=== PATIENT | female | born 1955 | race Caucasian/White ===

== ENCOUNTER 2019-12-02 15:39 | Emergency (ER) | payer SELFPAY ==
[2019-12-02] MEDS ORDERED: Albuterol/Ipratropium 3.0-0.5 MG/3 ML Neb Soln NEB ONE (16:08)
[2019-12-02] MEDS ORDERED: Sodium Chloride 0.9% 2.5 ML Syringe FLUSH PRN (16:09)
[2019-12-02] MEDS ORDERED: Sodium Chloride 0.9% 10 ML Syringe FLUSH PRN (16:09)
[2019-12-02 16:58] LABS: CARBON DIOXIDE,CO2 24.1 mmol/L (21.0-32.0); POTASSIUM,K 4.8 mmol/L (3.5-5.1)
[2019-12-02] MEDS ORDERED: methylPREDNISolone Sodium Succinate 125 MG/2 ML SDV IVPUSH ONE (16:59)
--- NOTE | 2019-12-02 17:10 | CR ---
Chest: Portable view of the chest was obtained. Comparison: No prior chest imaging. Heart size and mediastinum are within normal limits for portable technique. Lungs show no acute parenchymal change. Bony structures are grossly intact. Calcification is noted off the lateral humeral head compatible with previous calcific tendinitis. Impression: 1. Findings as noted above. 2. Nothing acute is seen on portable chest x-ray. Diagnostic code #2 Study was dictated in [place] Standard Time
[2019-12-02] MEDS ORDERED: Sodium Chloride 0.9% 1,000 ML IV ONE (17:16)
--- NOTE | 2019-12-02 17:41 | EDM.PDOC ---
ED HPI GENERAL MEDICAL PROBLEM - General Chief Complaint: Respiratory Problem Stated Complaint: FLU Time Seen by Provider: 12/02/19 15:49 Source of Information: Reports: Patient History Limitations: Reports: No Limitations - History of Present Illness INITIAL COMMENTS - FREE TEXT/NARRATIVE: HISTORY AND PHYSICAL: History of present illness: Patient is a 63-year-old female who presents to the emergency room with complaints of shortness of breath, cough, body aches and subjective fever. She states that symptoms have been ongoing for approximately a week but have been worse over the past 1 to 2 days. Patient is a daily long-term smoker. She denies any previous history of lung or heart problems. Patient denies any headache, change in vision, syncope or near syncope. Denies any chest pain, back pain, or neck pain/stiffness. Denies any GI or symptoms. Patient has been eating and drinking appropriately. Review of systems: As per history of present illness and below otherwise all systems reviewed and negative. Past medical history: As per history of present illness and as reviewed below otherwise noncontributory. Surgical history: As per history of present illness and as reviewed below otherwise noncontributory. Social history: See social history for further information Family history: As per history of present illness and as reviewed below otherwise noncontributory. Physical exam: General: Well-developed and well-nourished 63-year-old female. Alert and oriented. Nontoxic-appearing and in no acute distress. HEENT: Atraumatic, normocephalic, pupils equal and reactive bilaterally, negative for conjunctival pallor or scleral icterus, mucous membranes moist, TMs normal bilaterally, throat clear, neck supple, nontender, trachea midline. No drooling or trismus noted. No meningeal signs. No hot potato voice noted. Lungs: Fine expiratory wheezing bilaterally/slightly diminished otherwise clear to auscultation, chest nontender. Dry nonproductive cough is noted Heart: S1S2, regular rate and rhythm without overt murmur Abdomen: Soft, obese, nontender. Negative for masses or costovertebral tenderness. Pelvis: Stable nontender. Skin: Intact, warm, dry. No lesions or rashes noted. Extremities: Atraumatic, moves all extremities per self without difficulty or deficits, negative for cords or calf pain. Neurovascular unremarkable. Neuro: Awake, alert, oriented. Cranial nerves II through XII unremarkable. Cerebellum unremarkable. Motor and sensory unremarkable throughout. Exam nonfocal. Notes: Patient's oxygen saturation can range from 86 to 94% on room air. Her diagnostics are unremarkable with the exception of her renal function. Looking at previous lab work it appears that she has been elevated but not to the extent she is today. I did have nursing staff ambulate with her and monitor her oxygen which dips to the mid 80s. She states she did feel somewhat improved after the IV Solu-Medrol and DuoNeb. Initially she was agreeable to staying for observation for further evaluation and management of these findings. The hospitalist came and spoke with the patient and she states she would like to elope. Patient reports she doesn't have insurance and would like to leave against medical advice. Risks vs benefits were reviewed which include . I strongly encouraged her to follow-up with primary care or return to the emergency room if symptoms should persist, worsen or new symptoms develop. Diagnostics: CBC, CMP, UA, influenza, CXR Therapeutics: Solu-Medrol, IV fluids Impression: Renal insufficiency Hypoxia Against Medical Advice Plan: Patient was to be admitted; states she doesn't have insurance and would like to leave against medical advice. Definitive disposition and diagnosis as appropriate pending reevaluation and review of above. bodyaches Pain Score (Numeric/FACES): 8 - Related Data Allergies Allergy/AdvReac Type Severity Reaction Status Date / Time Influenza Virus Vaccines Allergy Other Verified 12/02/19 15:57 Home Meds: Home Meds Atenolol [Tenormin] 50 mg PO DAILY 12/02/19 [History] Ibuprofen 800 mg PO TID 12/02/19 [History] Lisinopril/Hydrochlorothiazide [Lisinopril-Hctz 20-12.5 mg Tab] 1 tab PO DAILY 12/02/19 [History] metFORMIN [Glucophage] 800 mg PO TID 12/02/19 [History] traMADol [Ultram] 50 mg PO BID 12/02/19 [History] Past Medical History HEENT History: Reports: None Cardiovascular History: Reports: Hypertension Respiratory History: Reports: None Gastrointestinal History: Reports: None Genitourinary History: Reports: None 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 History: Reports: 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 Musculoskeletal History: Reports: None Neurological History: Reports: None Psychiatric History: Reports: None Endocrine/Metabolic History: Reports: Diabetes, Type II Hematologic History: Reports: None Immunologic History: Reports: None Oncologic (Cancer) History: Reports: None Dermatologic History: Reports: None - Infectious Disease History Infectious Disease History: Reports: Chicken Pox - Past Surgical History Head Surgeries/Procedures: Reports: None HEENT Surgical History: Reports: None Cardiovascular Surgical History: Reports: None Respiratory Surgical History: Reports: None GI Surgical History: Reports: Appendectomy Female Surgical History: Reports: Breast Biopsy, Section Endocrine Surgical History: Reports: None Neurological Surgical History: Reports: None Musculoskeletal Surgical History: Reports: None Oncologic Surgical History: Reports: None Dermatological Surgical History: Reports: None Social & Family History - Family History Family Medical History: Noncontributory - Tobacco Use Smoking Status *Q: Current Every Day Smoker Years of Tobacco use: 52 Packs/Tins Daily: 0.5 - Caffeine Use Caffeine Use: Reports: None - Recreational Drug Use Recreational Drug Use: No ED ROS GENERAL - Review of Systems Review Of Systems: Comprehensive ROS is negative, except as noted in HPI. ED EXAM, GENERAL - Physical Exam Exam: See Below (See dictation) Course - Vital Signs Last Recorded V/S: Last Vital Signs Temp 96.1 F 12/02/19 15:58 Pulse 65 12/02/19 17:28 Resp 18 12/02/19 17:28 BP 104/70 12/02/19 17:28 Pulse Ox 93 L 12/02/19 17:28 - Orders/Labs/Meds Orders: Active Orders 24 hr Category Date Time Status Admission Status [Patient Status] [ADT] Stat ADT 12/02/19 17:38 Active EKG 12 Lead [EKG Documentation Completion] [RC] STAT Care 12/02/19 16:09 Active RT Aerosol Therapy [RC] ASDIRECTED Care 12/02/19 16:08 Active Sodium Chloride 0.9% [Normal Saline] 1,000 ml Med 12/02/19 17:16 Active IV STAT Sodium Chloride 0.9% [Saline Flush] Med 12/02/19 16:09 Active 10 ml FLUSH ASDIRECTED PRN Sodium Chloride 0.9% [Saline Flush] Med 12/02/19 16:09 Active 2.5 ml FLUSH ASDIRECTED PRN Saline Lock Insert [OM.PC] Stat Oth 12/02/19 16:09 Ordered Medication Orders Sodium Chloride (Normal Saline) 1,000 mls @ 999 mls/hr IV STAT ONE Stop: 12/02/19 18:16 Last Admin: 12/02/19 17:23 Dose: 999 mls/hr Sodium Chloride (Saline Flush) 10 ml FLUSH ASDIRECTED PRN PRN Reason: Keep Vein Open Last Admin: 12/02/19 16:37 Dose: 10 ml Sodium Chloride (Saline Flush) 2.5 ml FLUSH ASDIRECTED PRN PRN Reason: Keep Vein Open Last Admin: 12/02/19 16:37 Dose: 2.5 ml Labs: Laboratory Tests 12/02/19 12/02/19 Range/Units 16:05 16:05 WBC 6.85 (4.0-11.0) K/uL RBC 4.96 (4.30-5.90) M/uL Hgb 15.7 (12.0-16.0) g/dL Hct 46.6 H (36.0-46.0) % MCV 94.0 (80.0-98.0) fL MCH 31.7 (27.0-32.0) pg MCHC 33.7 (31.0-37.0) g/dL RDW Std Deviation 46.3 (28.0-62.0) fl RDW Coeff of [place] 14 (11.0-15.0) % Plt Count 213 (150-400) K/uL MPV 11.50 (7.40-12.00) fL Add Manual Diff YES Neutrophils % (Manual) 41 L (48.0-80.0) % Lymphocytes % (Manual) 50 H (16.0-40.0) % Monocytes % (Manual) 8 (0.0-15.0) % Eosinophils % (Manual) 1 (0.0-7.0) % Nucleated RBC % 0.0 /100WBC Absolute Seg Neuts 2.8 (1.4-5.7) Lymphocytes # (Manual) 3.4 H (0.6-2.4) Monocytes # (Manual) 0.5 (0.0-0.8) Eosinophils # (Manual) 0.1 (0.0-0.7) Nucleated RBCs # 0 K/uL Sodium 138 (136-145) mmol/L Potassium 4.8 (3.5-5.1) mmol/L Chloride 102 (98-107) mmol/L Carbon Dioxide 24.1 (21.0-32.0) mmol/L BUN 53 H (7.0-18.0) mg/dL Creatinine 1.8 H (0.6-1.0) mg/dL Est Cr Clr Drug Dosing 28.34 mL/min Estimated GFR (MDRD) 28.6 ml/min Glucose 104 (74-106) mg/dL Calcium 9.7 (8.5-10.1) mg/dL Total Bilirubin 0.3 (0.2-1.0) mg/dL AST 48 H (15-37) IU/L ALT 32 (14-63) IU/L Alkaline Phosphatase 103 (46-116) U/L Total Protein 8.1 (6.4-8.2) g/dL Albumin 3.8 (3.4-5.0) g/dL Globulin 4.3 H (2.6-4.0) g/dL Albumin/Globulin Ratio 0.9 (0.9-1.6) Meds: Medications Generic Name Dose Route Start Last Admin Trade Name Freq PRN Reason Stop Dose Admin Sodium Chloride 1,000 mls @ 999 mls/hr 12/02/19 17:16 12/02/19 17:23 Normal Saline IV 12/02/19 18:16 999 mls/hr STAT ONE Administration Sodium Chloride 10 ml 12/02/19 16:09 12/02/19 16:37 Saline Flush FLUSH 10 ml ASDIRECTED PRN Administration Keep Vein Open Sodium Chloride 2.5 ml 12/02/19 16:09 12/02/19 16:37 Saline Flush FLUSH 2.5 ml ASDIRECTED PRN Administration Keep Vein Open Discontinued Medications Generic Name Dose Route Start Last Admin Trade Name Freq PRN Reason Stop Dose Admin Albuterol/Ipratropium 3 ml 12/02/19 16:08 12/02/19 16:18 Duoneb 3.0-0.5 Mg/3 Ml NEB 12/02/19 16:09 3 ml ONETIME ONE Administration Methylprednisolone Sodium Succinate 125 mg 12/02/19 16:59 12/02/19 17:23 Solu-Medrol IVPUSH 12/02/19 17:00 125 mg ONETIME ONE Administration Departure - Departure Time of Disposition: 18:22 Disposition: Home, Self-Care 01 Clinical Impression: Renal insufficiency, Hypoxia, Left against medical advice - Discharge Information Referrals: Cindy Atwood DO [Primary Care Provider] - Forms: ED Department Discharge Sepsis Event Note - Evaluation Sepsis Screening Result: No Definite Risk - Focused Exam Vital Signs: Vital Signs Temp Pulse Resp BP Pulse Ox 12/02/19 17:28 65 18 104/70 93 L 12/02/19 15:58 96.1 F 75 18 120/75 86 L Date Exam was Performed: 12/02/19 Time Exam was Performed: 18:12 - My Orders Last 24 Hours: My Active Orders 12/02/19 16:08 RT Aerosol Therapy [RC] ASDIRECTED 12/02/19 16:09 EKG 12 Lead [EKG Documentation Completion] [RC] STAT Sodium Chloride 0.9% [Saline Flush] 10 ml FLUSH ASDIRECTED PRN Sodium Chloride 0.9% [Saline Flush] 2.5 ml FLUSH ASDIRECTED PRN Saline Lock Insert [OM.PC] Stat 12/02/19 17:16 Sodium Chloride 0.9% [Normal Saline] 1,000 ml IV STAT 12/02/19 17:38 Admission Status [Patient Status] [ADT] Stat - Assessment/Plan Last 24 Hours: My Active Orders 12/02/19 16:08 RT Aerosol Therapy [RC] ASDIRECTED 12/02/19 16:09 EKG 12 Lead [EKG Documentation Completion] [RC] STAT Sodium Chloride 0.9% [Saline Flush] 10 ml FLUSH ASDIRECTED PRN Sodium Chloride 0.9% [Saline Flush] 2.5 ml FLUSH ASDIRECTED PRN Saline Lock Insert [OM.PC] Stat 12/02/19 17:16 Sodium Chloride 0.9% [Normal Saline] 1,000 ml IV STAT 12/02/19 17:38 Admission Status [Patient Status] [ADT] Stat
== END 2019-12-02 18:52 | disposition left against medical advice (07) ==
LOC: MW.ED 15:39
DX: R09.02 Hypoxemia (principal); N28.9 Disorder of kidney and ureter, unspecified; F17.210 Nicotine dependence, cigarettes, uncomplicated; E11.9 Type 2 diabetes mellitus without complications; I10 Essential (primary) hypertension; Z79.84 Long term (current) use of oral hypoglycemic drugs; Z79.899 Other long term (current) drug therapy; Z88.7 Allergy status to serum and vaccine
CPT/HCPCS: 71045; 80053; 85025; 87804; 93005; 94640; 99283; J2930; J7030; J7620-GY

== ENCOUNTER 2020-08-13 22:22 | Emergency (ER) | payer SELFPAY ==
[2020-08-13] MEDS ORDERED: Sodium Chloride 0.9% 2.5 ML Syringe FLUSH PRN (22:28)
[2020-08-13] MEDS ORDERED: Sodium Chloride 0.9% 1,000 ML IV ONE (22:28)
[2020-08-13] MEDS ORDERED: Sodium Chloride 0.9% 10 ML Syringe FLUSH PRN (22:28)
[2020-08-13] MEDS ORDERED: Albuterol/Ipratropium 3.0-0.5 MG/3 ML Neb Soln NEB ONE (22:31)
[2020-08-13] MEDS ORDERED: cefTRIAXone 2 GM in Premix Bag 1 BAG IV ONE (22:31)
[2020-08-13] MEDS ORDERED: methylPREDNISolone Sodium Succinate 125 MG/2 ML SDV IVPUSH ONE (22:31)
--- NOTE | 2020-08-13 22:39 | EDM.PDOC ---
ED [facility] GENERAL MEDICAL PROBLEM - General Chief Complaint: Respiratory Problem Stated Complaint: difficulty breathing/cough Time Seen by Provider: 08/13/20 22:23 - History of Present Illness INITIAL COMMENTS - FREE TEXT/NARRATIVE: HISTORY AND PHYSICAL: History of present illness: This 64-year-old female with a past medical history of renal insufficiency, hypoxemia, obesity, hypertension, and diabetes mellitus presents emergency department complaining of severe shortness of breath that gradually worsened over the last several days. She was recently seen in clinic and had a negative COVID-19 test however today she presents hypoxic, oxygen saturation in the high 60s, tachypneic, accessory muscle use, pursed lip breathing, prolonged expiratory phase, and having difficulty giving history due to her cyanosis. She reports that she has had a cough, shortness of breath and gradual worsening and has not been able to lie flat. She denies history of COPD. No fevers. No productive sputum. No other associated signs or symptoms. No other modifying, aggravating or alleviating factors. She does currently smoke tobacco. Denies use of drugs or alcohol. Review of systems: A 10-point review of systems, other than pertinent positives and negatives as stated per HPI, is otherwise negative. Past medical history: As per history of present illness and as reviewed below otherwise noncontributory. Surgical history: As per history of present illness and as reviewed below otherwise noncontributory. Social history: No reported history of drug or alcohol abuse. Family history: As per history of present illness and as reviewed below otherwise noncontributory. Physical exam: VITAL SIGNS: Reviewed. GENERAL: Is to be in severe distress with tripoding, accessory muscle use, perioral cyanosis, tachypnea, prolonged expiratory phase and pursed lip breathing HEAD: No signs of head trauma. EYES: Pupils are equal. Extraocular motions intact. EARS: Hearing grossly intact. MOUTH: Oropharynx. Patient will not wear a mask. NECK: No adenopathy, no JVD. No jugular venous distention however this is limited somewhat by body habitus CHEST: Bilateral accessory muscle use, bilateral wheezing with prolonged expiratory phase. No rhonchi. CARDIAC: Regular rate and rhythm. Normal S1 and S2, without murmurs, gallops, or rubs. VASCULAR: Peripheral pulses normal and equal in all extremities. Cyanosis in the fingertips and periorally ABDOMEN: Soft, without detectable tenderness. No sign of distention. No rebound or guarding, and no masses palpated. MUSCULOSKELETAL: Good range of motion of all major joints. Extremities without clubbing, cyanosis or edema. NEUROLOGIC EXAM: Alert and oriented x 3. No focal sensory or motor deficits. Speech normal. Follows commands. PSYCHIATRIC: Mood normal. SKIN: No rash or lesions. Initial Differential Diagnosis & Plan: Shortness of breath: Differential diagnosis includes asthma, COPD, pneumonia, congestive heart failure, anemia, thyroid disease, acidosis, pulmonary embolism, myocardial infarction, sepsis. Most suspicious for COVID-19 infection, PE, congestive heart failure and chronic bronchitis. She does have acute bronchospasm and prolonged expiratory phase with pursed lip breathing. She is very hypoxemic. I will obtain a CT scan of the chest with angiography to rule out PE and underlying COVID-19 lung infection/ pneumonia. This patient appears to be critically ill and hopefully respond to resuscitation I would give empiric antibiotics and likely will require admission. Definitive disposition and diagnosis as appropriate pending reevaluation and review of above. Headache and R ear pain Pain Score (Numeric/FACES): 7 - Related Data Allergies Allergy/AdvReac Type Severity Reaction Status Date / Time Influenza Virus Vaccines Allergy Other Verified 08/13/20 22:34 Home Meds: Home Meds Ibuprofen 800 mg PO TID 12/02/19 [History] Lisinopril/Hydrochlorothiazide [Lisinopril-Hctz 20-12.5 mg Tab] 1 tab PO DAILY 12/02/19 [History] atenoloL [Tenormin] 50 mg PO DAILY 12/02/19 [History] traMADol [Ultram] 50 mg PO BID 12/02/19 [History] Cyanocobalamin (Vitamin B-12) [Vitamin B-12] 2,500 mcg PO DAILY 08/13/20 [History] Magnesium 500 mg PO DAILY 08/13/20 [History] Non-Formulary Medication [NF Drug] 08/13/20 [History] Albuterol/Ipratropium [DuoNeb 3.0-0.5 MG/3 ML] 3 ml .XX Q6HR 14 Days #90 neb 08/14/20 [Rx] Cefdinir [Omnicef] 300 mg PO BID #14 cap 08/14/20 [Rx] Doxycycline [Vibramycin] 100 mg PO BID 7 Days #14 tab 08/14/20 [Rx] Lactobacillus 3/Fos/Pantethine [Probiotic & Acidophilus] 1 each PO BID 30 Days #60 capsule 08/14/20 [Rx] predniSONE [Prednisone] 50 mg PO DAILY 5 Days #5 tablet 08/14/20 [Rx] Past Medical History HEENT History: Reports: None Cardiovascular History: Reports: Hypertension Respiratory History: Reports: None Gastrointestinal History: Reports: None Genitourinary History: Reports: None [employer] History: Reports: None Musculoskeletal History: Reports: None Neurological History: Reports: None Psychiatric History: Reports: None Endocrine/Metabolic History: Reports: Diabetes, Type II Hematologic History: Reports: None Immunologic History: Reports: None Oncologic (Cancer) History: Reports: None Dermatologic History: Reports: None - Infectious Disease History Infectious Disease History: Reports: Chicken Pox - Past Surgical History Head Surgeries/Procedures: Reports: None HEENT Surgical History: Reports: None Cardiovascular Surgical History: Reports: None Respiratory Surgical History: Reports: None GI Surgical History: Reports: Appendectomy Female Surgical History: Reports: Breast Biopsy, Section Endocrine Surgical History: Reports: None Neurological Surgical History: Reports: None Musculoskeletal Surgical History: Reports: None Oncologic Surgical History: Reports: None Dermatological Surgical History: Reports: None Social & Family History - Family History Family Medical History: Noncontributory - Caffeine Use Caffeine Use: Reports: None ED ROS GENERAL - Review of Systems Review Of Systems: See Below (noted) ED EXAM, GENERAL - Physical Exam Exam: See Below (noted) ED RESPIRATORY PROCEDURES - Additional/Other Procedure(s) Other (Free Text) Procedure(s): Critical Care Note: The patient presented in critical status due to acute respiratory failure, severe sepsis with endorgan dysfunction, required IV antibiotics and bilevel ventilation The patient required rapid exam, decision making, and frequent re-evaluations during their time in the Emergency Department. Total Critical Care time exclusive of all other billable procedure time provided by myself 107 minutes EKG INTERPRETATION EKG Interpretation Comments: 12 lead EKG interpretation Obtained: August 13, 2020 at 10:26 PM Rhythm: Sinus Rate: 84 Ash: Normal Intervals: Normal ST/T Segments: ST depressions in leads II, III and aVF about 0.5 mm. Also noted to have some mild ST depressions in V4 through V6 Interpretation: Sinus rhythm with ST depressions in the inferior lateral leads Course - Vital Signs Last Recorded V/S: Last Vital Signs Temp 98.0 F 08/14/20 00:54 Pulse 77 08/14/20 00:54 Resp 18 08/14/20 00:54 BP 133/65 08/14/20 00:54 Pulse Ox 84 L 08/14/20 00:54 Patient is refusing to be transferred. She is now refusing BiPAP. She has improved clinically but she is severely hypoxemic and had a very life- threatening overall appearance with evidence of non-ST segment elevation PR, acute respiratory failure, likely pneumonia, and multiorgan failure in the setting of sepsis. I have spoken to her at length at the bedside and also brought her daughter to the bedside to explain the gravity of her situation and the high likelihood that she could have decompensation if she goes home. In rogers layman's terms we discussed her pathology, that by signing the form she was releasing me, the physician, the hospital, the hospital staff, and all those relating to her care from any legal liability. She says she understands this and does not want to gurmeet us if she dies. These were her exact words. She has consented to obtaining a CT Yan[place]is of her chest to look for PE/pneumonia. We will then provide antibiotics for her to go home with. - Orders/Labs/Meds Orders: Active Orders 24 hr Category Date Time Status CTA Chest W WO Contrast [Ang Chest] [CT] Stat Exams 08/13/20 22:32 Taken Chest 1V Frontal [CR] Stat Exams 08/13/20 22:28 Taken CULTURE BLOOD [BC] Stat Lab 08/13/20 22:43 Received CULTURE BLOOD [BC] Stat Lab 08/13/20 22:51 Received PTT,PARTIAL THROMBOPLSTIN TIME [COAG] Q6H Lab 08/13/20 23:30 Ordered PTT,PARTIAL THROMBOPLSTIN TIME [COAG] Stat Lab 08/13/20 23:27 Ordered UA W/MICROSCOPIC [URIN] Stat Lab 08/13/20 22:29 Ordered Blood Culture x2 Reflex Set [OM.PC] Stat Oth 08/13/20 22:29 Ordered Saline Lock Insert [OM.PC] Stat Oth 08/13/20 22:29 Ordered Severe Sepsis Onset Time [OM.PC] Stat Oth 08/13/20 22:29 Ordered Labs: Laboratory Tests 08/13/20 08/13/20 08/13/20 Range/Units 22:29 22:29 22:29 WBC 19.32 H (4.0-11.0) K/uL RBC 4.25 L (4.30-5.90) M/uL Hgb 13.5 (12.0-16.0) g/dL Hct 41.7 (36.0-46.0) % MCV 98.1 H (80.0-98.0) fL MCH 31.8 (27.0-32.0) pg MCHC 32.4 (31.0-37.0) g/dL RDW Std Deviation 53.6 (28.0-62.0) fl RDW Coeff of Kaylah 15 (11.0-15.0) % Plt Count 309 (150-400) K/uL MPV 10.50 (7.40-12.00) fL Neut % (Auto) 75.9 (48.0-80.0) % Lymph % (Auto) 14.8 L (16.0-40.0) % [place] % (Auto) 8.9 (0.0-15.0) % Eos % (Auto) 0.3 (0.0-7.0) % Baso % (Auto) 0.1 (0.0-1.5) % Neut # (Auto) 14.7 H (1.4-5.7) K/uL Lymph # (Auto) 2.9 H (0.6-2.4) K/uL [place] # (Auto) 1.7 H (0.0-0.8) K/uL Eos # (Auto) 0.1 (0.0-0.7) K/uL Baso # (Auto) 0.0 (0.0-0.1) K/uL Nucleated RBC % 0.0 /100WBC Nucleated RBCs # 0 K/uL INR 1.04 APTT 25.5 (18.6-31.3) SEC D-Dimer, Quantitative (0.0-0.50) mg/L FEU ABG pH (7.35-7.45) ABG pCO2 (35-45) mmHG ABG pO2 (75-100) mmHG ABG HCO3 (22-26) mEq/L ABG Total CO2 ABG Base Excess (-2.0-2.0) Lactate (0.20-2.00) mmol/L Sodium 139 (136-145) mmol/L Potassium 3.3 L (3.5-5.1) mmol/L Chloride 102 (98-107) mmol/L Carbon Dioxide 26.0 (21.0-32.0) mmol/L BUN 31 H (7.0-18.0) mg/dL Creatinine 1.5 H (0.6-1.0) mg/dL Est Cr Clr Drug Dosing 33.58 mL/min Estimated GFR (MDRD) 35.2 ml/min Glucose 215 H (74-106) mg/dL Calcium 9.2 (8.5-10.1) mg/dL Total Bilirubin 0.6 (0.2-1.0) mg/dL AST 18 (15-37) IU/L ALT 21 (14-63) IU/L Alkaline Phosphatase 130 H (46-116) U/L Troponin I 0.138 H* (0.000-0.056) ng/mL C-Reactive Protein 15.30 H (0.00-0.90) mg/dL B-Natriuretic Peptide (<100) PG/ML Total Protein 7.6 (6.4-8.2) g/dL Albumin 3.1 L (3.4-5.0) g/dL Globulin 4.5 H (2.6-4.0) g/dL Albumin/Globulin Ratio 0.7 L (0.9-1.6) 08/13/20 08/13/20 08/13/20 Range/Units 22:29 22:29 22:29 WBC (4.0-11.0) K/uL RBC (4.30-5.90) M/uL Hgb (12.0-16.0) g/dL Hct (36.0-46.0) % MCV (80.0-98.0) fL MCH (27.0-32.0) pg MCHC (31.0-37.0) g/dL RDW Std Deviation (28.0-62.0) fl RDW Coeff of Kaylah (11.0-15.0) % Plt Count (150-400) K/uL MPV (7.40-12.00) fL Neut % (Auto) (48.0-80.0) % Lymph % (Auto) (16.0-40.0) % [place] % (Auto) (0.0-15.0) % Eos % (Auto) (0.0-7.0) % Baso % (Auto) (0.0-1.5) % Neut # (Auto) (1.4-5.7) K/uL Lymph # (Auto) (0.6-2.4) K/uL [place] # (Auto) (0.0-0.8) K/uL Eos # (Auto) (0.0-0.7) K/uL Baso # (Auto) (0.0-0.1) K/uL Nucleated RBC % /100WBC Nucleated RBCs # K/uL INR APTT (18.6-31.3) SEC D-Dimer, Quantitative 2.53 H (0.0-0.50) mg/L FEU ABG pH (7.35-7.45) ABG pCO2 (35-45) mmHG ABG pO2 (75-100) mmHG ABG HCO3 (22-26) mEq/L ABG Total CO2 ABG Base Excess (-2.0-2.0) Lactate 1.8 (0.20-2.00) mmol/L Sodium (136-145) mmol/L Potassium (3.5-5.1) mmol/L Chloride (98-107) mmol/L Carbon Dioxide (21.0-32.0) mmol/L BUN (7.0-18.0) mg/dL Creatinine (0.6-1.0) mg/dL Est Cr Clr Drug Dosing mL/min Estimated GFR (MDRD) ml/min Glucose (74-106) mg/dL Calcium (8.5-10.1) mg/dL Total Bilirubin (0.2-1.0) mg/dL AST (15-37) IU/L ALT (14-63) IU/L Alkaline Phosphatase (46-116) U/L Troponin I (0.000-0.056) ng/mL C-Reactive Protein (0.00-0.90) mg/dL B-Natriuretic Peptide 443 H (<100) PG/ML Total Protein (6.4-8.2) g/dL Albumin (3.4-5.0) g/dL Globulin (2.6-4.0) g/dL Albumin/Globulin Ratio (0.9-1.6) 08/13/20 Range/Units 22:58 WBC (4.0-11.0) K/uL RBC (4.30-5.90) M/uL Hgb (12.0-16.0) g/dL Hct (36.0-46.0) % MCV (80.0-98.0) fL MCH (27.0-32.0) pg MCHC (31.0-37.0) g/dL RDW Std Deviation (28.0-62.0) fl RDW Coeff of Kaylah (11.0-15.0) % Plt Count (150-400) K/uL MPV (7.40-12.00) fL Neut % (Auto) (48.0-80.0) % Lymph % (Auto) (16.0-40.0) % [place] % (Auto) (0.0-15.0) % Eos % (Auto) (0.0-7.0) % Baso % (Auto) (0.0-1.5) % Neut # (Auto) (1.4-5.7) K/uL Lymph # (Auto) (0.6-2.4) K/uL [place] # (Auto) (0.0-0.8) K/uL Eos # (Auto) (0.0-0.7) K/uL Baso # (Auto) (0.0-0.1) K/uL Nucleated RBC % /100WBC Nucleated RBCs # K/uL INR APTT (18.6-31.3) SEC D-Dimer, Quantitative (0.0-0.50) mg/L FEU ABG pH 7.371 (7.35-7.45) ABG pCO2 47 H (35-45) mmHG ABG pO2 39 L* (75-100) mmHG ABG HCO3 27 H (22-26) mEq/L ABG Total CO2 24.7 ABG Base Excess 1.1 (-2.0-2.0) Lactate (0.20-2.00) mmol/L Sodium (136-145) mmol/L Potassium (3.5-5.1) mmol/L Chloride (98-107) mmol/L Carbon Dioxide (21.0-32.0) mmol/L BUN (7.0-18.0) mg/dL Creatinine (0.6-1.0) mg/dL Est Cr Clr Drug Dosing mL/min Estimated GFR (MDRD) ml/min Glucose (74-106) mg/dL Calcium (8.5-10.1) mg/dL Total Bilirubin (0.2-1.0) mg/dL AST (15-37) IU/L ALT (14-63) IU/L Alkaline Phosphatase (46-116) U/L Troponin I (0.000-0.056) ng/mL C-Reactive Protein (0.00-0.90) mg/dL B-Natriuretic Peptide (<100) PG/ML Total Protein (6.4-8.2) g/dL Albumin (3.4-5.0) g/dL Globulin (2.6-4.0) g/dL Albumin/Globulin Ratio (0.9-1.6) Meds: Medications Discontinued Medications Generic Name Dose Route Start Last Admin Trade Name Paulq PRN Reason Stop Dose Admin Albuterol/Ipratropium 3 ml 08/13/20 22:31 08/13/20 22:58 Duoneb 3.0-0.5 Mg/3 Ml NEB 08/13/20 22:32 3 ml ONETIME ONE Administration Heparin Sodium (Porcine) 4,000 units 08/13/20 23:26 08/14/20 00:56 Heparin Sodium IVPUSH 08/13/20 23:27 Not Given .BOLUS ONE Sodium Chloride 1,000 mls @ 1,000 mls/hr 08/13/20 22:28 08/13/20 22:54 Normal Saline IV 08/13/20 23:27 1,000 mls/hr BOLUS ONE Administration Protocol Ceftriaxone Sodium/Dextrose 2 50 mls @ 100 mls/hr 08/13/20 22:31 08/13/20 22:58 gm/ Premix IV 08/13/20 23:00 100 mls/hr ONETIME ONE Administration Sodium Chloride 650 mls @ 1,000 mls/hr 08/13/20 22:55 08/13/20 23:00 Normal Saline IV 08/13/20 23:33 1,000 mls/hr .Bolus ONE Administration Heparin Sodium/Sodium Chloride 25,000 unit in 500 mls @ 27.651 mls/hr 08/13/20 23:30 Heparin-1/2ns 25,000 Units/500 IV TITRATE KILLIAN Protocol 12 UNITS/KG/HR Heparin Sodium/Sodium Chloride Confirm 08/13/20 23:35 08/14/20 00:56 Heparin-1/2ns 25,000 Units/500 Administered 08/13/20 23:36 Not Given Dose 25,000 unit in 500 mls @ as directed IV .STK-MED ONE Iopamidol 50 ml 08/14/20 00:20 08/14/20 00:20 Isovue-300 (61%) IVPUSH 08/14/20 00:21 50 ml ONETIME STA Administration Methylprednisolone Sodium Succinate 125 mg 08/13/20 22:31 08/13/20 22:54 Solu-Medrol IVPUSH 08/13/20 22:32 125 mg ONETIME ONE Administration Sodium Chloride 10 ml 08/13/20 22:28 Saline Flush FLUSH ASDIRECTED PRN Keep Vein Open Sodium Chloride 2.5 ml 08/13/20 22:28 Saline Flush FLUSH ASDIRECTED PRN Keep Vein Open - Re-Assessments/Exams Free Text/Narrative Re-Assessment/Exam: 08/13/20 22:53 code sepsis activated [place] Body weight is 55 kg based on height. Fluids for sepsis will be 55 kg x 30 ml/kg goal IVF is 1650 mL's 08/13/20 23:27 Reevaluated and the patient has elevated troponin, ST depressions, and criteria consistent with non-ST segment elevation PR. I will heparinize the patient. I have let her know that she will need to be transferred. She is not happy about this but that is where she can get the most appropriate care for her condition. CT is still pending. Responded well to bilevel ventilation. 08/14/20 00:27 Discussed in detail the patient's physiology, the appearance of pneumonia on her CT scan. I did turn off the oxygen about 20 or 30 minutes ago and she desaturated into the 80s. Currently staying at 85%. She does not have oxygen at home. I offered her multiple opportunities to be admitted/transferred and she is absolutely refusing. She understands the risks and consequences of going home up to and including . We discussed the case at the bedside in detail with her daughter. The daughter was not able to convince her to stay either. I will prescribe the patient Omnicef, doxycycline, steroids, and bronchodilators for her condition. She is at risk to . I will also recommend that she follows up with her doctor immediately and return to the emergency department. She understands she is always welcome here and does not feel that the staff did anything wrong. We had a long discussion about this she is just insistent on going home and wants to see her own physician for her own physicians recommendations. Her own physician is not on staff here and is not available by phone. My diagnostic impression: 1. Severe sepsis with endorgan dysfunction 2. Non-ST segment elevation PR 3. Acute respiratory failure with severe hypoxemia requiring bilevel ventilation for stability 4. Leukocytosis 5. Elevated troponin 6. Bilateral pneumonia with a significant right lower lobe pneumonia and bilateral pleural effusions 7. Acute renal failure 8. BMI greater than 40 Departure - Departure Time of Disposition: 00:31 Disposition: Against Medical Advice 07 Condition: Serious Clinical Impression: Acute respiratory failure, Severe sepsis with acute organ dysfunction, NSTEMI (non-ST elevated myocardial infarction), Leukocytosis, Elevated troponin, OSCAR (acute kidney injury), Acute bronchospasm, Left against medical advice, Pneumonia, Pleural effusion - Discharge Information *PRESCRIPTION DRUG MONITORING PROGRAM REVIEWED*: Not Applicable *COPY OF PRESCRIPTION DRUG MONITORING REPORT IN PATIENT NEENA: Not Applicable Prescriptions: Albuterol/Ipratropium [DuoNeb 3.0-0.5 MG/3 ML] 3 ml .XX Q6HR 14 Days #90 neb Cefdinir [Omnicef] 300 mg PO BID #14 cap predniSONE [Prednisone] 50 mg PO DAILY 5 Days #5 tablet Lactobacillus 3/Fos/Pantethine [Probiotic & Acidophilus] 1 each PO BID 30 Days #60 capsule Doxycycline [Vibramycin] 100 mg PO BID 7 Days #14 tab Instructions: Acute Respiratory Failure, Adult, Community-Acquired Pneumonia, Adult, [id number] Referrals: Cindy Atwood DO [Primary Care Provider] - Forms: ED Department Discharge Additional Instructions: You have left emergency department AGAINST MEDICAL ADVICE. Please return immediately to the emergency department for admission/further treatment and transfer. You are moderately to severely ill and could from your condition. You have sepsis, pneumonia, severe respiratory impairment, and damage to your heart called a non-ST segment elevation myocardial infarction. These conditions can lead to a more rapid progression of your disease and even . You can also be disabled from these conditions. We are always happy to see you and encourage you to return promptly for further care. We have discussed your conditions in detail with your family at bedside and you have refused to be admitted/transferred. I have tried to work through the reasons with you and the only reason that you can state is that you will only trust the recommendations of your primary care doctor who is located across the street and is not available at midnight. I have tried at length to reconcile your concerns and you continue to want to leave against my best medical advice. Please call 911 if you get sick and return immediately here and we will take care of you. I have attempted to give you the best care possible and have prescribed antibiotics to include Omnicef, doxycycline, steroids to include prednisone, a nebulizer machine and duo nebs help with your breathing, and an oral probiotic to help you avoid the untoward side effects of antibiotics. I implore you to return immediately so that we can take care of you appropriately and gave you the appropriate medical care you deserve. Sepsis Event Note (ED) - Focused Exam Vital Signs: Vital Signs Temp Pulse Resp BP Pulse Ox 08/14/20 00:54 98.0 F 77 18 133/65 84 L 08/14/20 00:25 78 20 140/56 L 84 L 08/14/20 00:19 77 20 132/57 L 86 L 08/14/20 00:16 74 129/66 98 08/14/20 00:12 75 132/57 L 92 L 08/13/20 23:26 70 117/57 L 99 08/13/20 22:37 96.3 F L 88 22 H 136/75 67 L 08/13/20 22:30 136/75 - My Orders Last 24 Hours: My Active Orders 08/13/20 22:28 Chest 1V Frontal [CR] Stat 08/13/20 22:29 UA W/MICROSCOPIC [URIN] Stat Blood Culture x2 Reflex Set [OM.PC] Stat Saline Lock Insert [OM.PC] Stat Severe Sepsis Onset Time [OM.PC] Stat 08/13/20 22:32 CTA Chest W WO Contrast [Ang Chest] [CT] Stat 08/13/20 22:43 CULTURE BLOOD [BC] Stat 08/13/20 22:51 CULTURE BLOOD [BC] Stat 08/13/20 23:27 PTT,PARTIAL THROMBOPLSTIN TIME [COAG] Stat 08/13/20 23:30 PTT,PARTIAL THROMBOPLSTIN TIME [COAG] Q6H - Assessment/Plan Last 24 Hours: My Active Orders 08/13/20 22:28 Chest 1V Frontal [CR] Stat 08/13/20 22:29 UA W/MICROSCOPIC [URIN] Stat Blood Culture x2 Reflex Set [OM.PC] Stat Saline Lock Insert [OM.PC] Stat Severe Sepsis Onset Time [OM.PC] Stat 08/13/20 22:32 CTA Chest W WO Contrast [Ang Chest] [CT] Stat 08/13/20 22:43 CULTURE BLOOD [BC] Stat 08/13/20 22:51 CULTURE BLOOD [BC] Stat 08/13/20 23:27 PTT,PARTIAL THROMBOPLSTIN TIME [COAG] Stat 08/13/20 23:30 PTT,PARTIAL THROMBOPLSTIN TIME [COAG] Q6H
[2020-08-13 23:05] LABS: POTASSIUM,K 3.3 mmol/L (3.5-5.1)
[2020-08-13] MEDS ORDERED: Heparin Sodium 5,000 Units/ML Vial IVPUSH ONE (23:26)
[2020-08-13] MEDS ORDERED: Heparin Sod,Pork In 0.45% Nacl 25,000 UNIT/500 ML IV.SOLN IV SCH (23:30)
[2020-08-13] MEDS ORDERED: SODIUM CHLORIDE IV ONE (23:35)
[2020-08-13] MEDS ORDERED: [UNRECOGNIZED DRUG - OTHER] IV ONE (23:35)
[2020-08-14] MEDS ORDERED: Iopamidol 612 MG/ML 50 ML SDV IVPUSH STA (00:20)
--- NOTE | 2020-08-14 01:10 | CT ---
INDICATION: Shortness of breath TECHNIQUE: CT chest PE was acquired with 50 cc Isovue-300 intravenous contrast. COMPARISON: None. FINDINGS: Heart and vasculature: Prominent dilatation of the pulmonary artery centrally with rapid tapering consistent with pulmonary arterial hypertension. No filling defects to suggest pulmonary emboli. No pericardial effusion. Thoracic aorta normal in caliber with mild atherosclerotic calcification. Lungs and pleural: No pleural effusion or pneumothorax. Bilateral areas of consolidation within the lung bases with some more mild intermixed areas of ground-glass opacification. Lymph nodes/mediastinum: Subcentimeter mediastinal lymph nodes. Chest wall: No masses. Upper abdomen: Normal. Bones: Old T10 compression fracture. IMPRESSION: 1. Underlying pulmonary arterial hypertension without evidence of acute pulmonary embolus. 2. Bilateral areas of consolidation within the lung bases with more mild ground-glass components. Appearance is suggestive of a multifocal pneumonia with viral pneumonia possible but somewhat less likely. Please note that all CT scans at this facility use dose modulation, iterative reconstruction, and/or weight-based dosing when appropriate to reduce radiation dose to as low as reasonably achievable. Dictated by Hiram Sanchez MD @ Aug 14 2020 1:00AM Signed by Dr. Hiram Sanchez @ Aug 14 2020 1:08AM
--- NOTE | 2020-08-14 01:10 | CR ---
INDICATION: [id number] low O2 saturations TECHNIQUE: Chest 1 view. COMPARISON: 12/02/2019 FINDINGS: Cardiovascular and mediastinum: Cardiomegaly with double pulmonary vascular congestive changes. Mediastinum is within normal limits. Lungs and pleural space: Lungs are clear. No sign of infiltrate or mass. No sign of pleural effusion. No pneumothorax. Bones and soft tissues: No significant findings. IMPRESSION: Cardiomegaly with probable pulmonary vascular congestive changes. Dictated by Boogie Tadeo MD @ Aug 14 2020 1:07AM Signed by Dr. Boogie Tadeo @ Aug 14 2020 1:08AM
== END 2020-08-14 00:54 | disposition left against medical advice (07) ==
LOC: MW.ED 22:22
DX: A41.9 Sepsis, unspecified organism (principal); J18.9 Pneumonia, unspecified organism; R65.20 Severe sepsis without septic shock; N17.9 Acute kidney failure, unspecified; J96.01 Acute respiratory failure with hypoxia; I21.4 Non-ST elevation (NSTEMI) myocardial infarction; D72.829 Elevated white blood cell count, unspecified; R79.89 Other specified abnormal findings of blood chemistry; J98.01 Acute bronchospasm; J90 Pleural effusion, not elsewhere classified; I10 Essential (primary) hypertension; E11.9 Type 2 diabetes mellitus without complications; E66.9 Obesity, unspecified; Z68.41 Body mass index [BMI] 40.0-44.9, adult; Z88.7 Allergy status to serum and vaccine; Z79.899 Other long term (current) drug therapy
CPT/HCPCS: 36415; 36600; 71045; 71275; 80053; 82803; 83605; 83880; 84484; 85025; 85379; 85610; 85730; 86140; 87040; 93005; 94660; 96361; 96374; 96375; 99291; 99292; J0696; J1644; J2930; J7030; Q9967; J7620-GY

== ENCOUNTER 2022-01-01 10:39 | Emergency (ER) | payer SELFPAY ==
[2022-01-01 11:57] LABS: BLOOD UREA NITROGEN,BUN 33 mg/dL (7.0-18.0); CHLORIDE,CL 104 mmol/L (98-107); GLUCOSE RANDOM 147 mg/dL (74-106); POTASSIUM,K 3.4 mmol/L (3.5-5.1); SODIUM,NA 142 mmol/L (136-145)
[2022-01-01] MEDS ORDERED: Sodium Chloride 0.9% 1,000 ML IV ONE (12:03)
[2022-01-01 13:18] LABS: CORONAVIRUS COVID-19 NAA NEGATIVE (NEGATIVE); INFLUENZA A NAA NEGATIVE (NEGATIVE); INFLUENZA B NAA NEGATIVE (NEGATIVE)
[2022-01-01] MEDS ORDERED: Heparin Sodium 5,000 Units/ML Vial IVPUSH ONE (15:15)
[2022-01-01] MEDS ORDERED: Heparin Sodium/0.45% NaCl 500 ML IV SCH (15:15)
[2022-01-01] MEDS ORDERED: Ondansetron 4 MG/2 ML SDV IVPUSH ONE (15:40)
[2022-01-01] MEDS ORDERED: Morphine 4 MG/ML VIAL IVPUSH ONE (15:40)
[2022-01-01] MEDS ORDERED: Iopamidol 755 MG/ML 500 ML Multipack Bottle IVPUSH ONE (16:08)
== END 2022-01-01 17:45 ==
LOC: MW.ED 10:39
DX: I82.411 Acute embolism and thrombosis of right femoral vein (principal); I26.99 Other pulmonary embolism without acute cor pulmonale; R09.02 Hypoxemia; I10 Essential (primary) hypertension; E11.9 Type 2 diabetes mellitus without complications; Z88.7 Allergy status to serum and vaccine; Z79.899 Other long term (current) drug therapy; Z20.822 Contact with and (suspected) exposure to COVID-19
CPT/HCPCS: 0240U; 36415; 36600; 71045; 75635; 80053; 81001; 82803; 83880; 85025; 85379; 85610; 85730; 93005; 96365; 96366; 96375; 99285; J1644; J2270; J2405; J7030; Q9967; 93010; 99283

== ENCOUNTER 2022-01-09 20:33 | Emergency (ER) | payer SELFPAY ==
[2022-01-09] MEDS ORDERED: Lidocaine 1% with EPINEPHrine 1:100,000 10 ML MDV INJECT ONE (20:58)
== END 2022-01-09 21:40 | disposition home or self-care (01) ==
LOC: MW.ED 20:33
DX: L76.82 Other postprocedural complications of skin and subcutaneous tissue (principal); S71.111A Laceration without foreign body, right thigh, initial encounter; I10 Essential (primary) hypertension; Z79.899 Other long term (current) drug therapy; X58.XXXA Exposure to other specified factors, initial encounter
CPT/HCPCS: 12001; 99282; 99283-25

== ENCOUNTER 2022-02-02 14:55 | Observation (INO) | payer SELFPAY ==
[2022-02-02] MEDS ORDERED: Sodium Chloride 0.9% 500 ML IV SCH ×3 (15:45→19:30)
[2022-02-02] MEDS ORDERED: Sodium Chloride 0.9% 1,000 ML IV ONE (16:12)
[2022-02-02] MEDS ORDERED: Piperacillin/Tazobactam 4.5 GM in Sodium Chloride 0.9% 100 ML IV ONE (16:24)
[2022-02-02] MEDS ORDERED: VANCOmycin 1.75 GM/350 ML 1.75 GM in Premix Bag 1 BAG IV ONE (16:30)
[2022-02-02 16:35] LABS: BLOOD UREA NITROGEN,BUN 45 mg/dL (7.0-18.0); CARBON DIOXIDE,CO2 26.9 mmol/L (21.0-32.0); CHLORIDE,CL 103 mmol/L (98-107); GLUCOSE RANDOM 142 mg/dL (74-106); POTASSIUM,K 4.2 mmol/L (3.5-5.1); SODIUM,NA 137 mmol/L (136-145)
[2022-02-02] MEDS ORDERED: Iopamidol 755 MG/ML 500 ML Multipack Bottle IVPUSH STA (18:38)
[2022-02-02] MEDS ORDERED: Dexamethasone 10 MG/ML SDV IVPUSH ONE (19:29)
[2022-02-02 20:32] LABS: CORONAVIRUS COVID-19 NAA NEGATIVE (NEGATIVE); INFLUENZA A NAA NEGATIVE (NEGATIVE); INFLUENZA B NAA NEGATIVE (NEGATIVE)
[2022-02-02] MEDS ORDERED: Piperacillin/Tazobactam 3.375 GM in Sodium Chloride 0.9% 50 ML IV SCH (23:30)
[2022-02-02] MEDS: Piperacillin/Tazobactam 2.25 GM in Sodium Chloride 0.9% 50 ML IV SCH (23:47)
[2022-02-02] MEDS: Apixaban 5 MG Tab PO SCH (23:56)
[2022-02-03] MEDS ORDERED: traMADol 50 MG Tab PO PRN (00:20)
[2022-02-03] MEDS: traMADol 50 MG Tab PO PRN ×4 (01:48→23:51)
[2022-02-03] MEDS: Piperacillin/Tazobactam 2.25 GM in Sodium Chloride 0.9% 50 ML IV SCH (05:30)
[2022-02-03 07:18] LABS: CARBON DIOXIDE,CO2 20.5 mmol/L (21.0-32.0); POTASSIUM,K 4.2 mmol/L (3.5-5.1)
[2022-02-03] MEDS ORDERED: Sodium Chloride 0.9% 0 ML ONE (09:38)
[2022-02-03] MEDS: cefTRIAXone 1 GM in Sodium Chloride 0.9% 50 ML IV SCH (09:44)
[2022-02-03] MEDS: Apixaban 5 MG Tab PO SCH ×2 (09:52→21:33)
[2022-02-03] MEDS ORDERED: 50% Dextrose in Water 50 ML Syringe IVPUSH PRN (09:56)
[2022-02-03] MEDS ORDERED: Glucagon,Human Recombinant 1 MG Vial IM PRN (09:56)
[2022-02-03] MEDS ORDERED: Piperacillin/Tazobactam 3.375 GM in Sodium Chloride 0.9% 100 ML IV SCH (11:30)
[2022-02-03] MEDS: Insulin Aspart 100 Units/ML 3 ML Pen SUBCUT SCH ×2 (12:47→19:17)
[2022-02-03] MEDS ORDERED: VANCOmycin 1.5 GM/300 ML 1.5 GM in Premix Bag 1 BAG IV SCH (18:00)
[2022-02-04 07:59] LABS: CARBON DIOXIDE,CO2 22.4 mmol/L (21.0-32.0); POTASSIUM,K 3.5 mmol/L (3.5-5.1)
[2022-02-04] MEDS: cefTRIAXone 1 GM in Sodium Chloride 0.9% 50 ML IV SCH (08:47)
[2022-02-04] MEDS: Apixaban 5 MG Tab PO SCH (08:48)
[2022-02-04] MEDS: Insulin Aspart 100 Units/ML 3 ML Pen SUBCUT SCH ×2 (08:55→12:38)
[2022-02-04] MEDS ORDERED: VANCOmycin 1.25 GM/250 ML 1.25 GM in Premix Bag 1 BAG IV SCH (17:00)
== END 2022-02-04 12:30 | disposition home or self-care (01) ==
LOC: MW.ED 14:55 → MW.MS 19:30
PROVIDERS: ADMIT Internal Medicine; ATTEND Internal Medicine
DX: I95.0 Idiopathic hypotension (principal); I10 Essential (primary) hypertension; E11.9 Type 2 diabetes mellitus without complications; Z88.7 Allergy status to serum and vaccine; Z79.01 Long term (current) use of anticoagulants; Z79.899 Other long term (current) drug therapy; Z86.718 Personal history of other venous thrombosis and embolism; Z86.711 Personal history of pulmonary embolism; Z20.822 Contact with and (suspected) exposure to COVID-19
CPT/HCPCS: 0240U; 36415; 70450; 71045; 71275; 74177; 80048; 80053; 81001; 82947; 83605; 84484; 85025; 85610; 87040; 87086; 93005; 96365; 96367; 96368; 96375; 96376; 99285; A9270; G0378; J0696; J1100; J1815; J2543; J3370; J7030; J7040; Q9967; 93010